=== PATIENT | male | born 1945 | race Caucasian/White ===

== ENCOUNTER → 2019-03-04 | Day surgery (SDC) | payer MEDICARE, OTHER ==
[2019-03-02 16:14] LABS: BASOPHILS # (AUTO) 0.1 (0.0-0.1); BASOPHILS % 1.1 % (0.0-1.0); EOSINOPHILS # (AUTO) 0.1 (0.0-0.4); EOSINOPHILS % 2.5 % (0.0-6.0); HEMOGLOBIN 12.5 g/dL (14.0-18.0); LYMPHOCYTES # (AUTO) 1.4 (1.0-3.2); LYMPHOCYTES % 24.6 % (18.0-39.1); MEAN CORPUSCULAR HEMOGLOBIN 30.9 pg (28-32); MEAN CORPUSCULAR HGB CONC 33.8 g/dL (31-35); MEAN CORPUSCULAR VOLUME 91.6 fL (81-99); MONOCYTES # (AUTO) 0.8 (0.2-0.8); MONOCYTES % 13.8 % (4.4-11.3); NEUTROPHILS # (AUTO) 3.3 (2.1-6.9); NEUTROPHILS % 57.6 % (38.7-80.0); PLATELET COUNT 271 x10e3/uL (140-360); RED BLOOD COUNT 4.04 x10e6/uL (4.3-5.7); RED CELL DISTRIBUTION WIDTH 12.6 % (11.7-14.4)
[~2019-03-04] MED LIST: AMIODARONE HCL200 MG PO; ATORVASTATIN CA10 MG PO; DEXAMETHASONE SOD PHOS 10 MG/1 ML VIAL ONE; FERROUS FUMARA324 MG PO; FOLIC ACID1 MG PO; IOPAMIDOL 200 MG/ML 20 ML VIAL IT ONE; LIDOCAINE HCL 1% 30ML-PF VIAL ONE; LISINOPRIL2.5 MG PO; METFORMIN HCL500 MG PO; MIDAZOLAM HCL 2 MG/2 ML VIAL ONE; NEXIUM40 MG PO; PROPOFOL IV EMULSION 10 MG/ML 20 ML VIAL ONE; XARELTO20 MG PO
[2019-03-04 08:05] VITALS: BP 134/86
== END | disposition home or self-care (01) ==
LOC: OR 05:44
PROVIDERS: ATTEND Physical Medicine & Rehabilitation Pain Medicine
DX: M54.16 Radiculopathy, lumbar region (principal); R93.7 Abnormal findings on diagnostic imaging of other parts of musculoskeletal system; E11.9 Type 2 diabetes mellitus without complications; E03.9 Hypothyroidism, unspecified; I48.91 Unspecified atrial fibrillation; I10 Essential (primary) hypertension; K21.9 Gastro-esophageal reflux disease without esophagitis; K44.9 Diaphragmatic hernia without obstruction or gangrene; Z01.812 Encounter for preprocedural laboratory examination; Z79.02 Long term (current) use of antithrombotics/antiplatelets; Z79.84 Long term (current) use of oral hypoglycemic drugs; Z79.82 Long term (current) use of aspirin
CPT/HCPCS: 36415 ×2; 64483; 64484 ×2; 82948; 85025; J1100; J2001; J2250; J2704; Q9967; 77003

== ENCOUNTER → 2019-04-15 | Day surgery (SDC) | payer MEDICARE ==
[2019-04-13 17:19] LABS: BASOPHILS # (AUTO) 0.1 (0.0-0.1); BASOPHILS % 0.9 % (0.0-1.0); EOSINOPHILS # (AUTO) 0.1 (0.0-0.4); EOSINOPHILS % 2.6 % (0.0-6.0); HEMATOCRIT 36.1 % (38.2-49.6); HEMOGLOBIN 12.3 g/dL (14.0-18.0); LYMPHOCYTES # (AUTO) 1.5 (1.0-3.2); LYMPHOCYTES % 27.8 % (18.0-39.1); MEAN CORPUSCULAR HEMOGLOBIN 31.5 pg (28-32); MEAN CORPUSCULAR HGB CONC 34.1 g/dL (31-35); MEAN CORPUSCULAR VOLUME 92.3 fL (81-99); MONOCYTES # (AUTO) 0.8 (0.2-0.8); MONOCYTES % 13.8 % (4.4-11.3); NEUTROPHILS % 54.5 % (38.7-80.0); PLATELET COUNT 236 x10e3/uL (140-360); RED BLOOD COUNT 3.91 x10e6/uL (4.3-5.7); RED CELL DISTRIBUTION WIDTH 12.1 % (11.7-14.4)
[~2019-04-15] MED LIST changes: +FENTANYL CITRATE/PF 100MCG/2 ML INJ ONE
[2019-04-15 07:28] VITALS: BP 128/62
== END | disposition home or self-care (01) ==
LOC: OR 05:13
PROVIDERS: ATTEND Physical Medicine & Rehabilitation Pain Medicine
DX: M47.26 Other spondylosis with radiculopathy, lumbar region (principal); E03.9 Hypothyroidism, unspecified; I10 Essential (primary) hypertension; I48.91 Unspecified atrial fibrillation; E11.9 Type 2 diabetes mellitus without complications; Z01.812 Encounter for preprocedural laboratory examination; Z79.02 Long term (current) use of antithrombotics/antiplatelets; Z79.84 Long term (current) use of oral hypoglycemic drugs; Z79.82 Long term (current) use of aspirin
CPT/HCPCS: 36415 ×2; 64483; 64484; 82948; 85025; J1100; J2001; J2250; J2704; Q9967; 77003; J3010

== ENCOUNTER → 2020-05-31 | Outpatient (CLI) | payer MEDICARE ==
[~2020-05-31] MED LIST changes: -DEXAMETHASONE SOD PHOS 10 MG/1 ML VIAL ONE; -FENTANYL CITRATE/PF 100MCG/2 ML INJ ONE; -IOPAMIDOL 200 MG/ML 20 ML VIAL IT ONE; -LIDOCAINE HCL 1% 30ML-PF VIAL ONE; -MIDAZOLAM HCL 2 MG/2 ML VIAL ONE; -PROPOFOL IV EMULSION 10 MG/ML 20 ML VIAL ONE
[2020-05-31 09:01] LABS: CREATININE, SERUM 1.41 mg/dL (0.72-1.25)
== END ==
LOC: CT 07:32
PROVIDERS: ATTEND Family Medicine
DX: K76.89 Other specified diseases of liver (principal)
CPT/HCPCS: 36415; 82565; 84520

== ENCOUNTER → 2020-07-11 | Outpatient (CLI) | payer MEDICARE ==
[~2020-07-11] MED LIST changes: +IOPAMIDOL 370 MG/ML 200 ML INFUS..BTL INJ ONE; +SODIUM CHLORIDE 0.9% 500ML 500 ML ONE; +SODIUM CHLORIDE 0.9% 50ML 50 ML ONE
[2020-07-11 11:56] LABS: CREATININE, SERUM 1.52 mg/dL (0.72-1.25)
--- NOTE | 2020-07-11 15:25 | Diagnostic Imaging Report ---
EXAM: CT Abdomen WITH intravenous contrast - liver mass protocol INDICATION: Left liver lesion COMPARISON: None. TECHNIQUE: The abdomen was scanned utilizing a multidetector helical scanner from the lung base to the iliac crest before and after administration of IV contrast. Coronal and sagittal reformations were obtained. Liver mass protocol was performed. Scans were performed prior to contrast and during arterial, portal venous, and venous delay phase. IV CONTRAST: 100mL of Isovue 370 ORAL CONTRAST: Water RADIATION DOSE: Total DLP: 1183 mGy*cm Dose modulation, iterative reconstruction, and/or weight based adjustment of the mA/kV was utilized to reduce the radiation dose to as low as reasonably achievable. FINDINGS: LOWER THORAX: Prominent peripheral lung base interstitial opacities compatible with component of nonspecific interstitial fibrosis. No focal consolidation. Large hiatal hernia. HEPATOBILIARY: 1.3 cm left liver lesion appears hypodense on noncontrast and early arterial phase images, shows peripheral nodular enhancement on portal venous phase images and is imperceptible with equal enhancement compared to surrounding liver parenchyma on 5 minute delayed phase images. Diffuse hepatic steatosis. No additional focal liver lesions. Unremarkable gallbladder. No biliary ductal dilation. SPLEEN: No splenomegaly. PANCREAS: No focal masses or ductal dilatation. ADRENALS: No adrenal nodules. KIDNEYS/URETERS: No hydronephrosis, renal calculi, or solid renal mass lesion. Bilateral renal cysts, the largest of which measures up to 2.3 cm on the right. PERITONEUM / RETROPERITONEUM: No free air or fluid. LYMPH NODES: No lymphadenopathy. VESSELS: Scattered atherosclerotic calcifications of the nonaneurysmal abdominal aorta and major branches. GI TRACT: No distention or wall thickening. BONES AND SOFT TISSUES: Unremarkable. IMPRESSION: 1.3 cm left liver lesion with characteristics most compatible with a benign hemangioma. Diffuse hepatic steatosis. Large hiatal hernia. Signed by: Dick Howell MD on 07/11/2020 3:21 PM
== END ==
LOC: CT 10:59
PROVIDERS: ATTEND Family Medicine
DX: K76.89 Other specified diseases of liver (principal)
CPT/HCPCS: 36415; 74170; 82565; 84520; 96360; J7040; Q9967

== ENCOUNTER → 2021-03-12 | Outpatient (CLI) | payer MEDICARE ==
[~2021-03-12] MED LIST changes: -IOPAMIDOL 370 MG/ML 200 ML INFUS..BTL INJ ONE; +LEVOXYL50 MCG PO; -SODIUM CHLORIDE 0.9% 500ML 500 ML ONE; -SODIUM CHLORIDE 0.9% 50ML 50 ML ONE
[2021-03-12 13:08] LABS: BASOPHILS # (AUTO) 0.1 (0.0-0.1); BASOPHILS % 1.3 % (0.0-1.0); EOSINOPHILS # (AUTO) 0.2 (0.0-0.4); EOSINOPHILS % 3.5 % (0.0-6.0); HEMATOCRIT 23.3 % (38.2-49.6); LYMPHOCYTES # (AUTO) 1.6 (1.0-3.2); LYMPHOCYTES % 23.9 % (18.0-39.1); MEAN CORPUSCULAR HEMOGLOBIN 24.5 pg (28-32); MEAN CORPUSCULAR HGB CONC 29.6 g/dL (31-35); MEAN CORPUSCULAR VOLUME 82.6 fL (81-99); MONOCYTES % 15.2 % (4.4-11.3); NEUTROPHILS # (AUTO) 3.8 (2.1-6.9); NEUTROPHILS % 55.8 % (38.7-80.0); PLATELET COUNT 375 x10e3/uL (140-360); RED BLOOD COUNT 2.82 x10e6/uL (4.3-5.7); RED CELL DISTRIBUTION WIDTH 15.2 % (11.7-14.4)
[2021-03-12 13:28] LABS: HEMOGLOBIN 6.9 g/dL (14.0-18.0)
[2021-03-12 13:39] LABS: ANION GAP 13.6 mmol/L (8-16); CALCIUM 9.1 mg/dL (8.4-10.2); CREATININE, SERUM 1.73 mg/dL (0.72-1.25); POTASSIUM 4.6 mmol/L (3.5-5.1)
== END | disposition home or self-care (01) ==
LOC: RAD 14:09 → EDSTATUS 03-29 07:30
PROVIDERS: ATTEND Physical Medicine & Rehabilitation Pain Medicine
DX: Z01.810 Encounter for preprocedural cardiovascular examination (principal); Z01.812 Encounter for preprocedural laboratory examination; M47.896 Other spondylosis, lumbar region; Z20.822 Contact with and (suspected) exposure to COVID-19
CPT/HCPCS: 36415; 80048; 85025; 93005; U0002

== ENCOUNTER → 2021-05-28 | Outpatient (CLI) | payer MEDICARE | LOC: RAD 13:57 | PROVIDERS: ATTEND Family Medicine | DX: I48.91 Unspecified atrial fibrillation (principal); M79.605 Pain in left leg; M79.604 Pain in right leg; R60.0 Localized edema | CPT/HCPCS: 93970 ==

== ENCOUNTER → 2021-08-27 | Day surgery (SDC) | payer MEDICARE ==
[2021-08-24 15:21] LABS: BASOPHILS # (AUTO) 0.1 (0.0-0.1); BASOPHILS % 1.1 % (0.0-1.0); EOSINOPHILS # (AUTO) 0.2 (0.0-0.4); EOSINOPHILS % 2.6 % (0.0-6.0); HEMATOCRIT 29.8 % (38.2-49.6); HEMOGLOBIN 9.6 g/dL (14.0-18.0); LYMPHOCYTES # (AUTO) 1.6 (1.0-3.2); LYMPHOCYTES % 23.6 % (18.0-39.1); MEAN CORPUSCULAR HGB CONC 32.2 g/dL (31-35); MONOCYTES # (AUTO) 0.7 (0.2-0.8); MONOCYTES % 10.7 % (4.4-11.3); NEUTROPHILS # (AUTO) 4.1 (2.1-6.9); NEUTROPHILS % 61.4 % (38.7-80.0); PLATELET COUNT 316 x10e3/uL (140-360); RED BLOOD COUNT 3.31 x10e6/uL (4.3-5.7); RED CELL DISTRIBUTION WIDTH 16.4 % (11.7-14.4)
[2021-08-24 15:34] LABS: ANION GAP 15.2 mmol/L (8-16); CALCIUM 9.1 mg/dL (8.4-10.2); CREATININE, SERUM 3.49 mg/dL (0.72-1.25); POTASSIUM 4.2 mmol/L (3.5-5.1)
[~2021-08-27] MED LIST changes: +CLARITIN10 MG PO; +GLUCAGON FOR INJ 1 MG VIAL ONE; +HYOSCYAMINE SULFATE 0.5 MG/ML INJ ONE; +LASIX20 MG PO; +POVIDONE IODINE 0.05% 0.05 % ML PO ONE; +PRAMIPEXOLE0.125 MG PO; +PROPOFOL IV EMULSION 10 MG/ML 20 ML VIAL ONE; +PROPOFOL IV EMULSION 10 MG/ML 50 ML VIAL IV ONE; +VITAMIN B122500 MCG; +VITAMIN B6100 MG/2.5
[2021-08-27 10:41] LABS: WBC,FECAL (FECAL LACTOFERRIN) POSITIVE (NEGATIVE)
[2021-08-27 11:30] VITALS: BP 149/65
[2021-08-27 15:12] LABS: C DIFFICILE TOXIN A&B AMP PROB NEGATIVE (NEGATIVE)
== END | disposition home or self-care (01) ==
LOC: OR 07:43
PROVIDERS: ATTEND Internal Medicine Gastroenterology
DX: D64.89 Other specified anemias (principal); C18.0 Malignant neoplasm of cecum; D12.5 Benign neoplasm of sigmoid colon; K31.7 Polyp of stomach and duodenum; K29.50 Unspecified chronic gastritis without bleeding; B96.81 Helicobacter pylori [H. pylori] as the cause of diseases classified elsewhere; K22.70 Barrett's esophagus without dysplasia; R19.7 Diarrhea, unspecified; K21.9 Gastro-esophageal reflux disease without esophagitis; K44.9 Diaphragmatic hernia without obstruction or gangrene; K57.30 Diverticulosis of large intestine without perforation or abscess without bleeding; K64.8 Other hemorrhoids; E11.22 Type 2 diabetes mellitus with diabetic chronic kidney disease; I12.9 Hypertensive chronic kidney disease with stage 1 through stage 4 chronic kidney disease, or unspecified chronic kidney disease; N18.9 Chronic kidney disease, unspecified; I48.91 Unspecified atrial fibrillation; Z01.810 Encounter for preprocedural cardiovascular examination; Z01.812 Encounter for preprocedural laboratory examination; Z20.822 Contact with and (suspected) exposure to COVID-19; Z79.02 Long term (current) use of antithrombotics/antiplatelets; Z79.84 Long term (current) use of oral hypoglycemic drugs; Z85.828 Personal history of other malignant neoplasm of skin
CPT/HCPCS: 36415 ×2; 43239; 45380; 45385; 80048; 82948; 83630; 83993; 85025; 87045; 87177; 87328; 87493; 93005; U0002; 45378; J1610; J1980

== ENCOUNTER → 2021-09-03 | Outpatient (CLI) | payer MEDICARE ==
[~2021-09-03] MED LIST changes: +DIATRIZOATE MEGL/DIATRIZOA SOD 30 ML BTL PO ONE; -GLUCAGON FOR INJ 1 MG VIAL ONE; -HYOSCYAMINE SULFATE 0.5 MG/ML INJ ONE; -POVIDONE IODINE 0.05% 0.05 % ML PO ONE; -PROPOFOL IV EMULSION 10 MG/ML 20 ML VIAL ONE; -PROPOFOL IV EMULSION 10 MG/ML 50 ML VIAL IV ONE
== END ==
LOC: CT 08:03
PROVIDERS: ATTEND Internal Medicine Gastroenterology
DX: D49.0 Neoplasm of unspecified behavior of digestive system (principal); R19.09 Other intra-abdominal and pelvic swelling, mass and lump
CPT/HCPCS: 74176

== ENCOUNTER → 2021-09-24 | Outpatient (CLI) | payer MEDICARE ==
[~2021-09-24] MED LIST changes: -DIATRIZOATE MEGL/DIATRIZOA SOD 30 ML BTL PO ONE
[2021-09-24 09:05] LABS: CREATININE, SERUM 2.47 mg/dL (0.72-1.25)
== END ==
LOC: CT 07:33
PROVIDERS: ATTEND Internal Medicine Gastroenterology
DX: K63.89 Other specified diseases of intestine (principal); R91.1 Solitary pulmonary nodule
CPT/HCPCS: 36415; 71250; 82565; 84520

== ENCOUNTER 2021-10-18 07:45 | Inpatient (IN) | payer MEDICARE ==
[2021-10-15 14:07] LABS: BASOPHILS # (AUTO) 0.1 (0.0-0.1); BASOPHILS % 1.3 % (0.0-1.0); EOSINOPHILS # (AUTO) 0.3 (0.0-0.4); EOSINOPHILS % 4.2 % (0.0-6.0); HEMATOCRIT 32.6 % (38.2-49.6); HEMOGLOBIN 10.1 g/dL (14.0-18.0); LYMPHOCYTES # (AUTO) 1.6 (1.0-3.2); LYMPHOCYTES % 25.4 % (18.0-39.1); MEAN CORPUSCULAR HEMOGLOBIN 29.5 pg (28-32); MEAN CORPUSCULAR VOLUME 95.3 fL (81-99); MONOCYTES # (AUTO) 0.8 (0.2-0.8); MONOCYTES % 12.1 % (4.4-11.3); NEUTROPHILS # (AUTO) 3.5 (2.1-6.9); NEUTROPHILS % 56.5 % (38.7-80.0); PLATELET COUNT 321 x10e3/uL (140-360); RED BLOOD COUNT 3.42 x10e6/uL (4.3-5.7); RED CELL DISTRIBUTION WIDTH 13.3 % (11.7-14.4)
[2021-10-15 14:38] LABS: ALBUMIN 3.7 g/dL (3.5-5.0); ALBUMIN/GLOBULIN RATIO 1.2 (0.8-2.0); CALCIUM 9.2 mg/dL (8.4-10.2); CREATININE, SERUM 2.72 mg/dL (0.72-1.25)
[~2021-10-18] VITALS: Ht 177.8 cm; Wt 74.4 kg
[~2021-10-18 07:45] MED LIST changes: +MOBIC7.5 MG PO
[2021-10-18] MEDS ORDERED: GLYCOPYRROLATE INJ 0.2 MG/ML VIAL ONE (08:54)
[2021-10-18] MEDS ORDERED: EPHEDRINE SULFATE INJ 50 MG/ML VIAL ONE (08:54)
[2021-10-18] MEDS ORDERED: LIDOCAINE HCL 2% LOCAL INJ 5 ML SDV VIAL INJ ONE (08:54)
[2021-10-18] MEDS ORDERED: NEOSTIGMINE 1 MG/ML 10ML VIAL ONE (08:54)
[2021-10-18] MEDS ORDERED: SEVOFLURANE INHAL SOLN 250 ML PEN BTL ONE (08:54)
[2021-10-18] MEDS ORDERED: DEXAMETHASONE SOD PHOS INJ 4 MG/ML SDV ONE (08:54)
[2021-10-18] MEDS ORDERED: POVIDONE IODINE 0.05% 0.05 % ML PO ONE (08:54)
[2021-10-18] MEDS ORDERED: PROPOFOL IV EMULSION 10 MG/ML 20 ML VIAL ONE (08:54)
[2021-10-18] MEDS ORDERED: ONDANSETRON HCL INJ 2MG/ML 2ML 2 MG/ML VIAL ONE (08:54)
[2021-10-18] MEDS: SODIUM CHLORIDE 0.9% 250ML IRRIG IR SCH ×6 (10:45→23:36)
[2021-10-18] MEDS ORDERED: ACETAMINOPHEN 1000 MG/100 ML IV PRN (10:45)
[2021-10-18 15:30] VITALS: BP 152/59
[2021-10-18] MEDS: INSULIN REGULAR, HUMAN 100 UNIT/1 ML SQ SCH (16:24)
[2021-10-18] MEDS: Cefoxitin 1 GM in SODIUM CHLORIDE 0.9% 50ML 50 ML IV SCH ×2 (17:06→23:36)
[2021-10-18] MEDS: SODIUM CHLORIDE 0.9% 1000ML 1,000 ML IV SCH (17:06)
[2021-10-18] MEDS ORDERED: KETAMINE HCL INJ 50 MG/ML 10 ML VIAL ONE (18:05)
[2021-10-18] MEDS ORDERED: FENTANYL CITRATE/PF 100MCG/2 ML INJ ONE (18:05)
[2021-10-18] MEDS ORDERED: Morphine 10mg syringe 10 MG/ML INJ ONE (18:05)
[2021-10-18 20:00] VITALS: BP 156/59
[2021-10-18] MEDS: AMIODARONE HCL 200 MG TAB PO SCH (21:45)
[2021-10-19] VITALS (8 sets, daily range): BP systolic 133–160; BP diastolic 53–67
[2021-10-19] MEDS: SODIUM CHLORIDE 0.9% 250ML IRRIG IR SCH ×6 (03:14→21:40)
[2021-10-19] MEDS: SODIUM CHLORIDE 0.9% 1000ML 1,000 ML IV SCH ×2 (05:29→12:05)
[2021-10-19] MEDS: INSULIN REGULAR, HUMAN 100 UNIT/1 ML SQ SCH ×4 (06:00→17:09)
[2021-10-19 09:11] LABS: HEMATOCRIT 30.2 % (38.2-49.6); HEMOGLOBIN 9.4 g/dL (14.0-18.0); LYMPHOCYTES # (AUTO) 0.7 (1.0-3.2); LYMPHOCYTES % 7.6 % (18.0-39.1); MEAN CORPUSCULAR HEMOGLOBIN 29.2 pg (28-32); MEAN CORPUSCULAR HGB CONC 31.1 g/dL (31-35); MEAN CORPUSCULAR VOLUME 93.8 fL (81-99); MONOCYTES # (AUTO) 0.9 (0.2-0.8); MONOCYTES % 8.9 % (4.4-11.3); NEUTROPHILS % 83.2 % (38.7-80.0); PLATELET COUNT 256 x10e3/uL (140-360); RED BLOOD COUNT 3.22 x10e6/uL (4.3-5.7)
[2021-10-19 09:28] LABS: ANION GAP 14.4 mmol/L (8-16); CALCIUM 8.5 mg/dL (8.4-10.2); CREATININE, SERUM 2.53 mg/dL (0.72-1.25); POTASSIUM 5.4 mmol/L (3.5-5.1)
[2021-10-19] MEDS: HYDROMORPHONE 1MG/1ML INJ IV PRN ×2 (11:21→21:15)
[2021-10-19] MEDS: AMIODARONE HCL 200 MG TAB PO SCH (20:49)
[2021-10-19] MEDS: ONDANSETRON HCL INJ 2MG/ML 2ML 2 MG/ML VIAL IV PRN (21:15)
[2021-10-20] MEDS: SODIUM CHLORIDE 0.9% 1000ML 1,000 ML IV SCH ×2 (01:50→11:29)
[2021-10-20] MEDS: SODIUM CHLORIDE 0.9% 250ML IRRIG IR SCH ×6 (01:53→21:59)
[2021-10-20 05:36] VITALS: BP 154/71
[2021-10-20] MEDS: INSULIN REGULAR, HUMAN 100 UNIT/1 ML SQ SCH ×4 (06:00→16:27)
[2021-10-20 06:12] LABS: BASOPHILS % 0.4 % (0.0-1.0); EOSINOPHILS # (AUTO) 0.1 (0.0-0.4); EOSINOPHILS % 0.9 % (0.0-6.0); HEMATOCRIT 28.5 % (38.2-49.6); HEMOGLOBIN 9.1 g/dL (14.0-18.0); LYMPHOCYTES # (AUTO) 1.1 (1.0-3.2); LYMPHOCYTES % 14.8 % (18.0-39.1); MEAN CORPUSCULAR HEMOGLOBIN 29.8 pg (28-32); MEAN CORPUSCULAR HGB CONC 31.9 g/dL (31-35); MEAN CORPUSCULAR VOLUME 93.4 fL (81-99); MONOCYTES # (AUTO) 0.8 (0.2-0.8); MONOCYTES % 10.3 % (4.4-11.3); NEUTROPHILS # (AUTO) 5.5 (2.1-6.9); NEUTROPHILS % 73.2 % (38.7-80.0); PLATELET COUNT 237 x10e3/uL (140-360); RED BLOOD COUNT 3.05 x10e6/uL (4.3-5.7); RED CELL DISTRIBUTION WIDTH 13.2 % (11.7-14.4)
[2021-10-20 06:32] LABS: ANION GAP 11.9 mmol/L (8-16); CALCIUM 8.4 mg/dL (8.4-10.2); CREATININE, SERUM 1.91 mg/dL (0.72-1.25); POTASSIUM 4.9 mmol/L (3.5-5.1)
[2021-10-20 07:51] VITALS: BP 135/59
[2021-10-20 08:58] VITALS: BP 135/59
[2021-10-20] MEDS: HYDROMORPHONE 1MG/1ML INJ IV PRN (11:29)
[2021-10-20] MEDS: ONDANSETRON HCL INJ 2MG/ML 2ML 2 MG/ML VIAL IV PRN (11:29)
[2021-10-20 11:51] VITALS: BP 180/65
[2021-10-20] MEDS: PRAMIPEXOLE DIHYDROCHLORIDE 0.25 MG TAB PO SCH ×2 (13:59→20:20)
[2021-10-20] MEDS ORDERED: METOPROLOL TARTRATE INJ 1 MG/ML VIAL IV ONE (15:30)
[2021-10-20 16:00] VITALS: BP 155/81
[2021-10-20] MEDS ORDERED: DEXTROSE 5%/0.9% SOD CHL 1,000 ML IV SCH (18:00)
[2021-10-20] MEDS ORDERED: DEXTROSE 50% SYRINGE 50 ML IV PRN (18:00)
[2021-10-20] MEDS: METOPROLOL TARTRATE INJ 1 MG/ML VIAL IV PRN (18:24)
[2021-10-20] MEDS: AMIODARONE HCL 200 MG TAB PO SCH (20:20)
[2021-10-20 20:43] VITALS: BP 129/98
[2021-10-21] VITALS (7 sets, daily range): BP systolic 136–175; BP diastolic 61–99
[2021-10-21] MEDS: METOPROLOL TARTRATE INJ 1 MG/ML VIAL IV PRN (02:24)
[2021-10-21] MEDS: SODIUM CHLORIDE 0.9% 250ML IRRIG IR SCH ×3 (02:45→10:45)
[2021-10-21] MEDS: INSULIN REGULAR, HUMAN 100 UNIT/1 ML SQ SCH ×4 (06:00→16:36)
[2021-10-21 06:24] LABS: BASOPHILS % 0.6 % (0.0-1.0); EOSINOPHILS # (AUTO) 0.2 (0.0-0.4); EOSINOPHILS % 2.5 % (0.0-6.0); HEMATOCRIT 32.1 % (38.2-49.6); HEMOGLOBIN 9.9 g/dL (14.0-18.0); LYMPHOCYTES % 14.2 % (18.0-39.1); MEAN CORPUSCULAR HEMOGLOBIN 29.3 pg (28-32); MEAN CORPUSCULAR HGB CONC 30.8 g/dL (31-35); MONOCYTES # (AUTO) 0.8 (0.2-0.8); MONOCYTES % 11.7 % (4.4-11.3); NEUTROPHILS % 70.7 % (38.7-80.0); PLATELET COUNT 259 x10e3/uL (140-360); RED BLOOD COUNT 3.38 x10e6/uL (4.3-5.7); RED CELL DISTRIBUTION WIDTH 12.9 % (11.7-14.4)
[2021-10-21 06:46] LABS: ANION GAP 12.8 mmol/L (8-16); CALCIUM 9.1 mg/dL (8.4-10.2); CREATININE, SERUM 1.62 mg/dL (0.72-1.25); POTASSIUM 4.8 mmol/L (3.5-5.1)
[2021-10-21] MEDS: PRAMIPEXOLE DIHYDROCHLORIDE 0.25 MG TAB PO SCH ×3 (08:57→21:00)
[2021-10-21] MEDS: HYDROMORPHONE 1MG/1ML INJ IV PRN (10:55)
[2021-10-21] MEDS: ONDANSETRON HCL INJ 2MG/ML 2ML 2 MG/ML VIAL IV PRN (10:55)
[2021-10-21] MEDS: DEXTROSE 5%/0.45% SOD CHL 1,000 ML IV SCH ×2 (13:58→23:30)
[2021-10-21] MEDS: METOPROLOL TARTRATE 25 MG TAB PO SCH (16:35)
[2021-10-21] MEDS: AMIODARONE HCL 200 MG TAB PO SCH (21:00)
[2021-10-22] VITALS (7 sets, daily range): BP systolic 141–163; BP diastolic 59–74
[2021-10-22] MEDS: INSULIN REGULAR, HUMAN 100 UNIT/1 ML SQ SCH ×4 (06:00→15:56)
[2021-10-22] MEDS: PRAMIPEXOLE DIHYDROCHLORIDE 0.25 MG TAB PO SCH ×3 (09:03→20:20)
[2021-10-22] MEDS: DEXTROSE 5%/0.45% SOD CHL 1,000 ML IV SCH ×2 (09:04→18:01)
[2021-10-22] MEDS: METOPROLOL TARTRATE 25 MG TAB PO SCH ×2 (09:04→15:57)
[2021-10-22] MEDS: AMIODARONE HCL 200 MG TAB PO SCH (20:20)
[2021-10-23] VITALS (8 sets, daily range): BP systolic 133–165; BP diastolic 57–81
[2021-10-23] MEDS: LISINOPRIL 2.5 MG TAB PO SCH ×2 (00:07→22:04)
[2021-10-23] MEDS: HYDROMORPHONE 1MG/1ML INJ IV PRN (01:15)
[2021-10-23] MEDS: INSULIN REGULAR, HUMAN 100 UNIT/1 ML SQ SCH ×4 (06:00→16:28)
[2021-10-23] MEDS: DEXTROSE 5%/0.45% SOD CHL 1,000 ML IV SCH ×2 (06:13→16:22)
[2021-10-23] MEDS: PRAMIPEXOLE DIHYDROCHLORIDE 0.25 MG TAB PO SCH ×3 (09:48→22:04)
[2021-10-23] MEDS: METOPROLOL TARTRATE 25 MG TAB PO SCH ×2 (09:48→16:27)
[2021-10-23] MEDS: AMIODARONE HCL 200 MG TAB PO SCH (22:03)
[2021-10-24] VITALS: BP 169/69
[2021-10-24 04:00] VITALS: BP 168/62
[2021-10-24] MEDS: INSULIN REGULAR, HUMAN 100 UNIT/1 ML SQ SCH ×3 (06:00→11:54)
[2021-10-24 07:45] VITALS: BP 154/61
[2021-10-24] MEDS: DEXTROSE 5%/0.45% SOD CHL 1,000 ML IV SCH (08:34)
[2021-10-24] MEDS: PRAMIPEXOLE DIHYDROCHLORIDE 0.25 MG TAB PO SCH ×2 (09:00→15:00)
[2021-10-24] MEDS: METOPROLOL TARTRATE 25 MG TAB PO SCH ×2 (09:00→16:21)
[2021-10-24 09:28] VITALS: BP 154/61
[2021-10-24 11:57] VITALS: BP 160/63
[2021-10-24 15:59] VITALS: BP 123/49
[2021-10-24] MEDS ORDERED: ENOXAPARIN SOD INJ 40 MG/0.4 ML SYR SC SCH (17:00)
== END 2021-10-24 16:45 | disposition home or self-care (01) | DRG 330 ==
LOC: OR 07:45 → PACU V 10:38 → MED/SURG 15:30
PROVIDERS: ADMIT Surgery; ATTEND Surgery
PROC: 0DTF0ZZ Resection of Right Large Intestine, Open Approach (ICD-10-PCS; principal; 2021-10-18 09:00)
DX: C18.2 Malignant neoplasm of ascending colon (principal); C78.7 Secondary malignant neoplasm of liver and intrahepatic bile duct; C78.00 Secondary malignant neoplasm of unspecified lung; N17.9 Acute kidney failure, unspecified; I48.0 Paroxysmal atrial fibrillation; I10 Essential (primary) hypertension; E78.5 Hyperlipidemia, unspecified; K21.9 Gastro-esophageal reflux disease without esophagitis; E03.9 Hypothyroidism, unspecified; E11.9 Type 2 diabetes mellitus without complications; Z20.822 Contact with and (suspected) exposure to COVID-19; Z79.84 Long term (current) use of oral hypoglycemic drugs
CPT/HCPCS: 36415; 71046; 80048; 80053; 82948; 85025; 88305; 88309; 88342; 94799; J0694; J1100; J1170; J2001; J2270; J2405; J2710; J3010; J7030; J7042; U0002

== ENCOUNTER → 2021-11-21 | Day surgery (SDC) | payer MEDICARE ==
[2021-11-20 10:06] LABS: BASOPHILS # (AUTO) 0.1 (0.0-0.1); BASOPHILS % 1.3 % (0.0-1.0); EOSINOPHILS # (AUTO) 0.3 (0.0-0.4); EOSINOPHILS % 3.8 % (0.0-6.0); HEMATOCRIT 36.9 % (38.2-49.6); HEMOGLOBIN 11.4 g/dL (14.0-18.0); LYMPHOCYTES # (AUTO) 1.6 (1.0-3.2); LYMPHOCYTES % 21.9 % (18.0-39.1); MEAN CORPUSCULAR HEMOGLOBIN 28.9 pg (28-32); MEAN CORPUSCULAR HGB CONC 30.9 g/dL (31-35); MEAN CORPUSCULAR VOLUME 93.4 fL (81-99); MONOCYTES # (AUTO) 1.1 (0.2-0.8); MONOCYTES % 14.7 % (4.4-11.3); NEUTROPHILS # (AUTO) 4.1 (2.1-6.9); NEUTROPHILS % 57.5 % (38.7-80.0); PLATELET COUNT 280 x10e3/uL (140-360); RED BLOOD COUNT 3.95 x10e6/uL (4.3-5.7); RED CELL DISTRIBUTION WIDTH 13.2 % (11.7-14.4)
[2021-11-20 10:30] LABS: ALBUMIN 3.8 g/dL (3.5-5.0); ALBUMIN/GLOBULIN RATIO 1.2 (0.8-2.0); ANION GAP 17.4 mmol/L (8-16); CALCIUM 9.7 mg/dL (8.4-10.2); CREATININE, SERUM 2.85 mg/dL (0.72-1.25); POTASSIUM 4.4 mmol/L (3.5-5.1)
[~2021-11-21] MED LIST changes: +BUPIVACAINE 0.25% 30ML SDV ONE; +DEXAMETHASONE SOD PHOS INJ 4 MG/ML SDV ONE; +EPHEDRINE SULFATE INJ 50 MG/ML VIAL ONE; +EPINEPHRINE HCL 1:1000 1ML 1 MG/ML AMP ONE; +FENTANYL CITRATE/PF 100MCG/2 ML INJ ONE; +HEPARIN SOD (PORCINE) 5,000 UNIT/ML VIAL ONE; +LIDOCAINE HCL 1% LOCAL INJ 20 ML VIAL ONE; +LIDOCAINE HCL 2% LOCAL INJ 5 ML SDV VIAL INJ ONE; +ONDANSETRON HCL INJ 2MG/ML 2ML 2 MG/ML VIAL ONE; +POVIDONE IODINE 0.05% 0.05 % ML PO ONE; +PROPOFOL IV EMULSION 10 MG/ML 20 ML VIAL ONE; +SEVOFLURANE INHAL SOLN 250 ML PEN BTL ONE; +SODIUM CHLORIDE 0.9% 500ML 500 ML ONE
[2021-11-21 11:18] VITALS: BP 5/10
== END | disposition home or self-care (01) ==
LOC: OR 06:36
PROVIDERS: ATTEND Surgery
DX: C18.9 Malignant neoplasm of colon, unspecified (principal); E11.9 Type 2 diabetes mellitus without complications; E03.9 Hypothyroidism, unspecified; K21.9 Gastro-esophageal reflux disease without esophagitis; I10 Essential (primary) hypertension; I44.0 Atrioventricular block, first degree; I45.10 Unspecified right bundle-branch block; E78.5 Hyperlipidemia, unspecified; I49.9 Cardiac arrhythmia, unspecified; Z01.812 Encounter for preprocedural laboratory examination; Z20.822 Contact with and (suspected) exposure to COVID-19; Z79.84 Long term (current) use of oral hypoglycemic drugs; Z79.899 Other long term (current) drug therapy; Z90.49 Acquired absence of other specified parts of digestive tract
CPT/HCPCS: 36415 ×2; 36561; 76000; 80053; 82948; 85025; C1751; J1644; J7040; U0002; J0171; J1100; J2001; J2405; J3010

== ENCOUNTER → 2021-11-30 | Outpatient (CLI) | payer MEDICARE ==
[~2021-11-30] MED LIST changes: -BUPIVACAINE 0.25% 30ML SDV ONE; -DEXAMETHASONE SOD PHOS INJ 4 MG/ML SDV ONE; -EPHEDRINE SULFATE INJ 50 MG/ML VIAL ONE; -EPINEPHRINE HCL 1:1000 1ML 1 MG/ML AMP ONE; -FENTANYL CITRATE/PF 100MCG/2 ML INJ ONE; -HEPARIN SOD (PORCINE) 5,000 UNIT/ML VIAL ONE; -LIDOCAINE HCL 1% LOCAL INJ 20 ML VIAL ONE; -LIDOCAINE HCL 2% LOCAL INJ 5 ML SDV VIAL INJ ONE; -ONDANSETRON HCL INJ 2MG/ML 2ML 2 MG/ML VIAL ONE; -POVIDONE IODINE 0.05% 0.05 % ML PO ONE; -PROPOFOL IV EMULSION 10 MG/ML 20 ML VIAL ONE; -SEVOFLURANE INHAL SOLN 250 ML PEN BTL ONE; -SODIUM CHLORIDE 0.9% 500ML 500 ML ONE
== END ==
LOC: CT 15:20
PROVIDERS: ATTEND Internal Medicine Medical Oncology
DX: C18.9 Malignant neoplasm of colon, unspecified (principal)
CPT/HCPCS: 71250; 74176

== ENCOUNTER → 2022-01-03 | Day surgery (SDC) | payer MEDICARE ==
[2021-12-31 14:01] LABS: EOSINOPHILS # (AUTO) 0.1 (0.0-0.4); EOSINOPHILS % 1.2 % (0.0-6.0); HEMATOCRIT 28.9 % (38.2-49.6); HEMOGLOBIN 9.9 g/dL (14.0-18.0); LYMPHOCYTES # (AUTO) 1.2 (1.0-3.2); LYMPHOCYTES % 28.8 % (18.0-39.1); MEAN CORPUSCULAR HEMOGLOBIN 29.8 pg (28-32); MEAN CORPUSCULAR HGB CONC 34.3 g/dL (31-35); MONOCYTES # (AUTO) 0.2 (0.2-0.8); MONOCYTES % 4.2 % (4.4-11.3); NEUTROPHILS # (AUTO) 2.6 (2.1-6.9); NEUTROPHILS % 64.3 % (38.7-80.0); PLATELET COUNT 216 x10e3/uL (140-360); RED BLOOD COUNT 3.32 x10e6/uL (4.3-5.7); RED CELL DISTRIBUTION WIDTH 13.6 % (11.7-14.4)
[~2022-01-03] MED LIST changes: +EPHEDRINE SULFATE INJ 50 MG/ML VIAL ONE; +FENTANYL CITRATE/PF 100MCG/2 ML INJ ONE; +LIDOCAINE HCL 2% LOCAL INJ 5 ML SDV VIAL INJ ONE; +MIDAZOLAM HCL 2 MG/2 ML VIAL ONE; +PROPOFOL IV EMULSION 10 MG/ML 20 ML VIAL ONE; +PYRIDOXINE HCL PO; -VITAMIN B122500 MCG; +VITAMIN B122500 MCG PO
[2022-01-03 10:44] VITALS: BP 115/62
[2022-01-03 11:28] LABS: BASOPHILS # (AUTO) 0.1 (0.0-0.1); BASOPHILS % 1.6 % (0.0-1.0); EOSINOPHILS % 1.3 % (0.0-6.0); HEMATOCRIT 33.4 % (38.2-49.6); HEMOGLOBIN 11.3 g/dL (14.0-18.0); LYMPHOCYTES # (AUTO) 1.5 (1.0-3.2); LYMPHOCYTES % 46.1 % (18.0-39.1); MEAN CORPUSCULAR HEMOGLOBIN 29.7 pg (28-32); MEAN CORPUSCULAR HGB CONC 33.8 g/dL (31-35); MEAN CORPUSCULAR VOLUME 87.7 fL (81-99); MONOCYTES # (AUTO) 0.3 (0.2-0.8); MONOCYTES % 9.1 % (4.4-11.3); NEUTROPHILS # (AUTO) 1.3 (2.1-6.9); NEUTROPHILS % 41.6 % (38.7-80.0); PLATELET COUNT 162 x10e3/uL (140-360); RED BLOOD COUNT 3.81 x10e6/uL (4.3-5.7); RED CELL DISTRIBUTION WIDTH 13.7 % (11.7-14.4)
== END | disposition home or self-care (01) ==
LOC: OR 07:39
PROVIDERS: ATTEND Internal Medicine Gastroenterology
DX: K62.5 Hemorrhage of anus and rectum (principal); Z85.038 Personal history of other malignant neoplasm of large intestine; K29.70 Gastritis, unspecified, without bleeding; K21.00 Gastro-esophageal reflux disease with esophagitis, without bleeding; K22.70 Barrett's esophagus without dysplasia; K44.9 Diaphragmatic hernia without obstruction or gangrene; Z98.0 Intestinal bypass and anastomosis status; K57.30 Diverticulosis of large intestine without perforation or abscess without bleeding; K64.8 Other hemorrhoids; D64.9 Anemia, unspecified; I48.91 Unspecified atrial fibrillation; I10 Essential (primary) hypertension; E11.9 Type 2 diabetes mellitus without complications; Z01.812 Encounter for preprocedural laboratory examination; Z20.822 Contact with and (suspected) exposure to COVID-19; Z79.84 Long term (current) use of oral hypoglycemic drugs; Z79.899 Other long term (current) drug therapy
CPT/HCPCS: 36415 ×2; 43239; 45378; 82948; 85025 ×2; C9113; J2001; J2250; J2704; J3010; U0002

== ENCOUNTER → 2022-08-05 | Outpatient (CLI) | payer MEDICARE ==
[~2022-08-05] MED LIST changes: +AMIODARONE HCL100 MG PO; -EPHEDRINE SULFATE INJ 50 MG/ML VIAL ONE; +ESOMEPRAZOLE MA40 MG PO; -FENTANYL CITRATE/PF 100MCG/2 ML INJ ONE; -LIDOCAINE HCL 2% LOCAL INJ 5 ML SDV VIAL INJ ONE; +LISINOPRIL10 MG PO; +METFORMIN HCL500 M1 PO; -MIDAZOLAM HCL 2 MG/2 ML VIAL ONE; -PROPOFOL IV EMULSION 10 MG/ML 20 ML VIAL ONE; +SYNTHROID50 MCG PO
== END ==
LOC: CT 08:49
PROVIDERS: ATTEND Internal Medicine Medical Oncology
DX: C18.9 Malignant neoplasm of colon, unspecified (principal); C78.7 Secondary malignant neoplasm of liver and intrahepatic bile duct
CPT/HCPCS: 71250; 74176

== ENCOUNTER 2022-08-08 12:22 | Inpatient (IN) | payer MEDICARE ==
[~2022-08-08] VITALS: Ht 177.8 cm; Wt 56.7 kg
[~2022-08-08 12:22] MED LIST changes: -AMIODARONE HCL100 MG PO; -ESOMEPRAZOLE MA40 MG PO; -LISINOPRIL10 MG PO; -METFORMIN HCL500 M1 PO; -SYNTHROID50 MCG PO
[2022-08-08] MEDS ORDERED: SODIUM CHLORIDE 0.9% 1000ML 1,000 ML IV SCH ×2 (13:15→15:30)
[2022-08-08 14:23] LABS: BASOPHILS % 2.5 % (0.0-1.0); HEMATOCRIT 37.2 % (38.2-49.6); HEMOGLOBIN 12.5 g/dL (14.0-18.0); LYMPHOCYTES # (AUTO) 0.4 (1.0-3.2); LYMPHOCYTES % 87.5 % (18.0-39.1); MEAN CORPUSCULAR HEMOGLOBIN 31.6 pg (28-32); MEAN CORPUSCULAR HGB CONC 33.6 g/dL (31-35); MEAN CORPUSCULAR VOLUME 93.9 fL (81-99); PLATELET COUNT 159 x10e3/uL (140-360); RED BLOOD COUNT 3.96 x10e6/uL (4.3-5.7); RED CELL DISTRIBUTION WIDTH 12.8 % (11.7-14.4)
[2022-08-08 14:37] LABS: INR 0.95; PROTHROMBIN TIME 13.5 seconds (11.9-14.5)
[2022-08-08 14:38] LABS: PARTIAL THROMBOPLASTIN TIME 25.4 seconds (23.8-35.5)
[2022-08-08 14:39] LABS: ALBUMIN 3.6 g/dL (3.5-5.0); ALBUMIN/GLOBULIN RATIO 1.2 (0.8-2.0); ANION GAP 19.7 mmol/L (8-16); CALCIUM 9.8 mg/dL (8.4-10.2); CREATININE, SERUM 4.25 mg/dL (0.72-1.25)
[2022-08-08 14:43] LABS: POTASSIUM 6.7 mmol/L (3.5-5.1)
[2022-08-08] MEDS ORDERED: CALCIUM GLUCONATE 10% INJ 0.465 MEQ/ML VIAL IV STA (14:49)
[2022-08-08] MEDS ORDERED: DEXTROSE 50% SYRINGE 50 ML IV STA (14:49)
[2022-08-08] MEDS ORDERED: SODIUM BICARBONATE 8.4% INJ 50 ML SYR IV STA (14:49)
[2022-08-08] MEDS ORDERED: SOD POLYSTYRENE SULFONATE SUSP 15 GM/60 ML BTL PO STA (14:49)
[2022-08-08] MEDS ORDERED: ALBUTEROL SULF 0.083% NEB SOLN 3 ML NEB NEB STA (14:49)
[2022-08-08] MEDS ORDERED: CALCIUM GLUC 1 G/50 ML NACL 50 ML IV ONE (15:00)
[2022-08-08] MEDS ORDERED: INSULIN REGULAR, HUMAN 100 UNIT/1 ML IV ONE (15:00)
[2022-08-08] MEDS ORDERED: FUROSEMIDE INJ 10 MG/ML 10 ML VIAL IV ONE (15:00)
[2022-08-08] MEDS ORDERED: DEXTROSE 50% SYRINGE 50 ML IV ONE (15:00)
[2022-08-08] MEDS ORDERED: FILGRASTIM 300 MCG/ML VIAL SC STA (15:26)
[2022-08-08] MEDS ORDERED: ONDANSETRON HCL INJ 2MG/ML 2ML 2 MG/ML VIAL IV PRN (15:30)
[2022-08-08] MEDS ORDERED: FUROSEMIDE INJ 10 MG/ML 4 ML VIAL ONE (15:33)
[2022-08-08 16:06] LABS: LYMPHOCYTES % (MANUAL) 80 % (19-48); MONOCYTES % (MANUAL) 4 % (3.4-9.0); NEUTROPHILS % (MANUAL) 8 % (40-74); PLATELET ESTIMATE ADEQUATE; PLATELET MORPHOLOGY COMMENT NORMAL; RBC MORPHOLOGY COMMENT NORMAL
[2022-08-08] MEDS ORDERED: FILGRASTIM-AAFI 480 MCG/0.8 ML SYRINGE SQ ONE (16:30)
[2022-08-08 16:33] LABS: CLARITY,URINE CLEAR (CLEAR); COLOR,URINE YELLOW (YELLOW); KETONES,URINE NEGATIVE (NEGATIVE); LEUKOCYTE ESTERASE ,URINE NEGATIVE (NEGATIVE); NITRITE,URINE NEGATIVE (NEGATIVE); PROTEIN,URINE DIPSTICK NEGATIVE (NEGATIVE); URINE UROBILINOGEN 0.2 mg/dL (0.2 - 1)
[2022-08-08 16:43] LABS: BACTERIA,URINE RARE /HPF
[2022-08-08] MEDS ORDERED: SODIUM BICARBONATE 8.4% 75 ML in SODIUM CHLORIDE 0.45% 1,000 ML IV ONE (17:00)
[2022-08-08] MEDS ORDERED: METFORMIN HCL500 M1 PO (22:28)
[2022-08-08] MEDS ORDERED: ESOMEPRAZOLE MA40 MG PO (22:28)
[2022-08-08] MEDS ORDERED: SYNTHROID50 MCG PO (22:28)
[2022-08-08] MEDS ORDERED: AMIODARONE HCL100 MG PO (22:28)
[2022-08-08] MEDS ORDERED: LISINOPRIL10 MG PO (22:28)
[2022-08-08 22:29] VITALS: BP 98/61
[2022-08-08 22:52] VITALS: BP 98/61
[2022-08-08] MEDS ORDERED: AMIODARONE HCL 200 MG TAB PO ONE (23:30)
[2022-08-09] VITALS (7 sets, daily range): BP systolic 70–91; BP diastolic 49–62
[2022-08-09 06:18] LABS: BASOPHILS % 1.8 % (0.0-1.0); EOSINOPHILS % 1.8 % (0.0-6.0); HEMATOCRIT 30.4 % (38.2-49.6); HEMOGLOBIN 10.4 g/dL (14.0-18.0); LYMPHOCYTES # (AUTO) 0.5 (1.0-3.2); LYMPHOCYTES % 84.2 % (18.0-39.1); MEAN CORPUSCULAR HGB CONC 34.2 g/dL (31-35); MEAN CORPUSCULAR VOLUME 93.5 fL (81-99); MONOCYTES # (AUTO) 0.1 (0.2-0.8); MONOCYTES % 8.8 % (4.4-11.3); NEUTROPHILS % 3.4 % (38.7-80.0); PLATELET COUNT 140 x10e3/uL (140-360); RED BLOOD COUNT 3.25 x10e6/uL (4.3-5.7); RED CELL DISTRIBUTION WIDTH 12.9 % (11.7-14.4)
[2022-08-09 06:52] LABS: ALBUMIN/GLOBULIN RATIO 1.1 (0.8-2.0); ANION GAP 18.9 mmol/L (8-16); CREATININE, SERUM 4.37 mg/dL (0.72-1.25); POTASSIUM 4.9 mmol/L (3.5-5.1)
[2022-08-09 10:06] LABS: EOSINOPHILS % (MANUAL) 4 % (0-7); LYMPHOCYTES % (MANUAL) 94 % (19-48); MONOCYTES % (MANUAL) 2 % (3.4-9.0); PLATELET ESTIMATE SLIGHTLY DECREASED; PLATELET MORPHOLOGY COMMENT FEW LARGE; RBC MORPHOLOGY COMMENT NORMAL
[2022-08-09 11:01] LABS: ALBUMIN 2.8 g/dL (3.5-5.0); ALBUMIN/GLOBULIN RATIO 1.1 (0.8-2.0); ANION GAP 17.9 mmol/L (8-16); CALCIUM 8.8 mg/dL (8.4-10.2); CREATININE, SERUM 4.16 mg/dL (0.72-1.25); POTASSIUM 4.9 mmol/L (3.5-5.1)
[2022-08-09] MEDS: PANTOPRAZOLE SOD 40 MG TABEC PO SCH (11:56)
[2022-08-09] MEDS: SODIUM BICARBONATE 650 MG TAB PO SCH ×2 (11:56→17:00)
[2022-08-09] MEDS: FILGRASTIM-AAFI 480 MCG/0.8 ML SYRINGE SQ SCH (13:07)
[2022-08-09] MEDS: SODIUM CHLORIDE 0.9% 1000ML 1,000 ML IV SCH (22:14)
[2022-08-10] VITALS (7 sets, daily range): BP systolic 78–103; BP diastolic 54–72
[2022-08-10 07:04] LABS: ANION GAP 18.4 mmol/L (8-16); CALCIUM 8.9 mg/dL (8.4-10.2); CREATININE, SERUM 4.08 mg/dL (0.72-1.25); MAGNESIUM 1.6 MG/DL (1.3-2.1); PHOSPHORUS 3.6 MG/DL (2.3-4.7); POTASSIUM 4.4 mmol/L (3.5-5.1)
[2022-08-10] MEDS: PANTOPRAZOLE SOD 40 MG TABEC PO SCH (07:30)
[2022-08-10] MEDS ORDERED: AMIODARONE HCL 200 MG TAB PO SCH (09:00)
[2022-08-10] MEDS: FILGRASTIM-AAFI 480 MCG/0.8 ML SYRINGE SQ SCH (09:04)
[2022-08-10] MEDS: SODIUM BICARBONATE 650 MG TAB PO SCH ×2 (09:04→16:18)
[2022-08-10] MEDS: AMIODARONE HCL 200 MG TAB PO SCH (09:04)
[2022-08-10 11:09] LABS: BASOPHILS % 2.4 % (0.0-1.0); EOSINOPHILS % 1.2 % (0.0-6.0); HEMATOCRIT 31.9 % (38.2-49.6); HEMOGLOBIN 10.3 g/dL (14.0-18.0); LYMPHOCYTES # (AUTO) 0.7 (1.0-3.2); LYMPHOCYTES % 81.1 % (18.0-39.1); MEAN CORPUSCULAR HEMOGLOBIN 31.1 pg (28-32); MEAN CORPUSCULAR HGB CONC 32.3 g/dL (31-35); MEAN CORPUSCULAR VOLUME 96.4 fL (81-99); MONOCYTES # (AUTO) 0.1 (0.2-0.8); MONOCYTES % 15.3 % (4.4-11.3); PLATELET COUNT 143 x10e3/uL (140-360); RED BLOOD COUNT 3.31 x10e6/uL (4.3-5.7)
[2022-08-10] MEDS: SODIUM CHLORIDE 0.9% 1000ML 1,000 ML IV SCH (11:32)
[2022-08-10 14:46] LABS: LYMPHOCYTES % (MANUAL) 79 % (19-48); MONOCYTES % (MANUAL) 19 % (3.4-9.0); RBC MORPHOLOGY COMMENT NORMAL
[2022-08-10 14:47] LABS: PLATELET ESTIMATE ADEQUATE; PLATELET MORPHOLOGY COMMENT NORMAL
[2022-08-10] MEDS ORDERED: LOPERAMIDE HCL 2 MG CAP PO PRN (16:00)
[2022-08-10] MEDS: CHOLESTYRAMINE 4 GM PACKET PO SCH (16:18)
[2022-08-11] VITALS (8 sets, daily range): BP systolic 90–113; BP diastolic 48–69
[2022-08-11] MEDS: SODIUM CHLORIDE 0.9% 1000ML 1,000 ML IV SCH ×2 (04:00→13:15)
[2022-08-11 05:31] LABS: EOSINOPHILS % 2.1 % (0.0-6.0); HEMATOCRIT 29.9 % (38.2-49.6); LYMPHOCYTES # (AUTO) 0.6 (1.0-3.2); LYMPHOCYTES % 62.5 % (18.0-39.1); MEAN CORPUSCULAR HEMOGLOBIN 31.3 pg (28-32); MEAN CORPUSCULAR HGB CONC 33.4 g/dL (31-35); MEAN CORPUSCULAR VOLUME 93.7 fL (81-99); MONOCYTES # (AUTO) 0.3 (0.2-0.8); MONOCYTES % 31.3 % (4.4-11.3); PLATELET COUNT 171 x10e3/uL (140-360); RED BLOOD COUNT 3.19 x10e6/uL (4.3-5.7); RED CELL DISTRIBUTION WIDTH 12.8 % (11.7-14.4)
[2022-08-11] MEDS: LEVOTHYROXINE SODIUM 50 MCG TAB PO SCH (05:35)
[2022-08-11 05:44] LABS: ANION GAP 16.9 mmol/L (8-16); CALCIUM 8.8 mg/dL (8.4-10.2); CREATININE, SERUM 3.2 mg/dL (0.72-1.25); POTASSIUM 3.9 mmol/L (3.5-5.1)
[2022-08-11] MEDS: PANTOPRAZOLE SOD 40 MG TABEC PO SCH (08:53)
[2022-08-11] MEDS: SODIUM BICARBONATE 650 MG TAB PO SCH ×2 (08:53→16:48)
[2022-08-11] MEDS: CHOLESTYRAMINE 4 GM PACKET PO SCH (08:53)
[2022-08-11] MEDS: FILGRASTIM-AAFI 480 MCG/0.8 ML SYRINGE SQ SCH (08:55)
[2022-08-11] MEDS: AMIODARONE HCL 200 MG TAB PO SCH (08:55)
[2022-08-11 10:43] LABS: EOSINOPHILS % (MANUAL) 1 % (0-7); LYMPHOCYTES % (MANUAL) 75 % (19-48); MONOCYTES % (MANUAL) 17 % (3.4-9.0); PLATELET ESTIMATE ADEQUATE; PLATELET MORPHOLOGY COMMENT NORMAL; RBC MORPHOLOGY COMMENT NORMAL
[2022-08-11] MEDS: ACETAMINOPHEN 325 MG TAB PO PRN ×2 (16:47→22:24)
[2022-08-12] VITALS (8 sets, daily range): BP systolic 95–119; BP diastolic 49–76
[2022-08-12] MEDS: LEVOTHYROXINE SODIUM 50 MCG TAB PO SCH (05:47)
[2022-08-12] MEDS: TRAMADOL HCL 50 MG TAB PO PRN ×2 (05:47→16:00)
[2022-08-12] MEDS: SODIUM CHLORIDE 0.9% 1000ML 1,000 ML IV SCH ×2 (05:48→16:08)
[2022-08-12] MEDS: PANTOPRAZOLE SOD 40 MG TABEC PO SCH (08:23)
[2022-08-12] MEDS: CHOLESTYRAMINE 4 GM PACKET PO SCH (08:23)
[2022-08-12] MEDS: FILGRASTIM-AAFI 480 MCG/0.8 ML SYRINGE SQ SCH (08:23)
[2022-08-12] MEDS: AMIODARONE HCL 200 MG TAB PO SCH ×2 (08:23→22:22)
[2022-08-12] MEDS: SODIUM BICARBONATE 650 MG TAB PO SCH ×2 (08:23→17:35)
[2022-08-12 19:21] LABS: BASOPHILS % 0.3 % (0.0-1.0); EOSINOPHILS # (AUTO) 0.1 (0.0-0.4); EOSINOPHILS % 0.8 % (0.0-6.0); HEMATOCRIT 27.3 % (38.2-49.6); HEMOGLOBIN 9.1 g/dL (14.0-18.0); LYMPHOCYTES # (AUTO) 0.9 (1.0-3.2); LYMPHOCYTES % 12.8 % (18.0-39.1); MEAN CORPUSCULAR HEMOGLOBIN 31.7 pg (28-32); MEAN CORPUSCULAR HGB CONC 33.3 g/dL (31-35); MEAN CORPUSCULAR VOLUME 95.1 fL (81-99); MONOCYTES # (AUTO) 1.7 (0.2-0.8); MONOCYTES % 23.2 % (4.4-11.3); NEUTROPHILS # (AUTO) 3.8 (2.1-6.9); NEUTROPHILS % 50.9 % (38.7-80.0); PLATELET COUNT 140 x10e3/uL (140-360); RED BLOOD COUNT 2.87 x10e6/uL (4.3-5.7); RED CELL DISTRIBUTION WIDTH 13.2 % (11.7-14.4)
[2022-08-12] MEDS ORDERED: METOPROLOL SUCCINATE 25 MG TAB XL PO ONE (21:00)
[2022-08-12] MEDS ORDERED: AMIODARONE HCL 200 MG TAB PO SCH (21:35)
[2022-08-13] VITALS (8 sets, daily range): BP systolic 94–118; BP diastolic 59–69
[2022-08-13 04:54] LABS: EOSINOPHILS # (AUTO) 0.1 (0.0-0.4); EOSINOPHILS % 0.6 % (0.0-6.0); HEMATOCRIT 24.5 % (38.2-49.6); HEMOGLOBIN 8.6 g/dL (14.0-18.0); LYMPHOCYTES # (AUTO) 1.2 (1.0-3.2); LYMPHOCYTES % 9.2 % (18.0-39.1); MEAN CORPUSCULAR HEMOGLOBIN 31.7 pg (28-32); MEAN CORPUSCULAR HGB CONC 35.1 g/dL (31-35); MEAN CORPUSCULAR VOLUME 90.4 fL (81-99); MONOCYTES # (AUTO) 2.1 (0.2-0.8); MONOCYTES % 16.8 % (4.4-11.3); NEUTROPHILS # (AUTO) 7.2 (2.1-6.9); NEUTROPHILS % 56.8 % (38.7-80.0); PLATELET COUNT 142 x10e3/uL (140-360); RED BLOOD COUNT 2.71 x10e6/uL (4.3-5.7); RED CELL DISTRIBUTION WIDTH 13.4 % (11.7-14.4)
[2022-08-13 05:21] LABS: ANION GAP 14.1 mmol/L (8-16); CALCIUM 8.1 mg/dL (8.4-10.2); CREATININE, SERUM 2.15 mg/dL (0.72-1.25); POTASSIUM 3.1 mmol/L (3.5-5.1)
[2022-08-13] MEDS: LEVOTHYROXINE SODIUM 50 MCG TAB PO SCH (05:27)
[2022-08-13] MEDS: SODIUM CHLORIDE 0.9% 1000ML 1,000 ML IV SCH ×2 (05:27→18:35)
[2022-08-13] MEDS: SODIUM BICARBONATE 650 MG TAB PO SCH ×2 (08:05→17:38)
[2022-08-13] MEDS: CHOLESTYRAMINE 4 GM PACKET PO SCH (08:05)
[2022-08-13] MEDS: PANTOPRAZOLE SOD 40 MG TABEC PO SCH (08:05)
[2022-08-13] MEDS: AMIODARONE HCL 200 MG TAB PO SCH ×2 (08:06→20:39)
[2022-08-13] MEDS: FILGRASTIM-AAFI 480 MCG/0.8 ML SYRINGE SQ SCH (08:06)
[2022-08-13] MEDS ORDERED: AMIODARONE HCL 200 MG TAB PO ONE (09:00)
[2022-08-13] MEDS ORDERED: AMIODARONE HCL 200 MG TAB PO SCH (09:00)
[2022-08-13] MEDS: APIXABAN 5 MG TABLET PO SCH ×2 (09:27→20:37)
[2022-08-13 10:17] LABS: BAND NEUTROPHILS % (MANUAL) 7 %; LYMPHOCYTES % (MANUAL) 10 % (19-48); METAMYELOCYTES % (MANUAL) 7 % (0-0); MONOCYTES % (MANUAL) 5 % (3.4-9.0); MYELOCYTES % (MANUAL) 9 % (0-0); NEUTROPHILS % (MANUAL) 55 % (40-74); PROMYELOCYTES % (MANUAL) 6 % (0-0)
[2022-08-13 10:20] LABS: PLATELET ESTIMATE ADEQUATE; PLATELET MORPHOLOGY COMMENT NORMAL; RBC MORPHOLOGY COMMENT NORMAL; TOXIC GRANULATION MODERATE
[2022-08-13] MEDS ORDERED: POTASSIUM CHLORIDE 20MEQ/100ML 200 ML IV ONE (11:30)
[2022-08-13 17:34] LABS: CREATININE,URINE RANDOM 86.51 mg/dL (63-166)
[2022-08-14 00:57] VITALS: BP 134/70
[2022-08-14] MEDS: LEVOTHYROXINE SODIUM 50 MCG TAB PO SCH (05:36)
[2022-08-14 06:09] VITALS: BP 106/64
[2022-08-14] MEDS: SODIUM CHLORIDE 0.9% 1000ML 1,000 ML IV SCH (07:55)
[2022-08-14] MEDS: SODIUM BICARBONATE 650 MG TAB PO SCH (08:42)
[2022-08-14] MEDS: PANTOPRAZOLE SOD 40 MG TABEC PO SCH (08:42)
[2022-08-14] MEDS: AMIODARONE HCL 200 MG TAB PO SCH (08:42)
[2022-08-14] MEDS: APIXABAN 5 MG TABLET PO SCH (08:42)
[2022-08-14] MEDS: CHOLESTYRAMINE 4 GM PACKET PO SCH (08:42)
[2022-08-14 08:47] VITALS: BP 127/73
[2022-08-14 08:52] VITALS: BP 127/73
[2022-08-14] MEDS ORDERED: HEPARIN 500 UNITS/5ML MDV INJ ONE (11:15)
[2022-08-14 12:00] VITALS: BP 131/81
[2022-08-14] MEDS ORDERED: SODIUM BICARBONATE 650 MG TAB PO SCH (15:00)
== END 2022-08-14 12:44 | disposition home or self-care (01) | DRG 809 ==
LOC: ER 12:54 → ERHOLD 15:36 → MED/SURG2 20:42
PROVIDERS: ADMIT Family Medicine; ATTEND Family Medicine
DX: D70.1 Agranulocytosis secondary to cancer chemotherapy (principal); C18.9 Malignant neoplasm of colon, unspecified; N17.9 Acute kidney failure, unspecified; E87.1 Hypo-osmolality and hyponatremia; E87.20 Acidosis, unspecified; C78.7 Secondary malignant neoplasm of liver and intrahepatic bile duct; C78.02 Secondary malignant neoplasm of left lung; C78.01 Secondary malignant neoplasm of right lung; N18.4 Chronic kidney disease, stage 4 (severe); E44.0 Moderate protein-calorie malnutrition; Z68.1 Body mass index [BMI] 19.9 or less, adult; T45.1X5A Adverse effect of antineoplastic and immunosuppressive drugs, initial encounter; D70.9 Neutropenia, unspecified; B97.4 Respiratory syncytial virus as the cause of diseases classified elsewhere; E11.22 Type 2 diabetes mellitus with diabetic chronic kidney disease; I12.9 Hypertensive chronic kidney disease with stage 1 through stage 4 chronic kidney disease, or unspecified chronic kidney disease; I48.91 Unspecified atrial fibrillation; K44.9 Diaphragmatic hernia without obstruction or gangrene; E86.0 Dehydration; E87.5 Hyperkalemia; E78.5 Hyperlipidemia, unspecified; Z85.828 Personal history of other malignant neoplasm of skin; Z20.822 Contact with and (suspected) exposure to COVID-19; Z80.8 Family history of malignant neoplasm of other organs or systems; Z84.89 Family history of other specified conditions; Z90.49 Acquired absence of other specified parts of digestive tract; D63.8 Anemia in other chronic diseases classified elsewhere; R79.89 Other specified abnormal findings of blood chemistry; N28.1 Cyst of kidney, acquired
CPT/HCPCS: 36415; 71045; 71250; 74176; 76770; 80048; 80053; 81001; 81015; 82575; 82948; 83518; 83605; 83735; 84100; 84132; 85025; 85610; 85730; 87040; 87070; 87086; 87186; 87400; 87420; 93005; 96361; 99251; 99284; J0456; J0696; J1442; J1817; J1940; J2405; J3480; J7030; J7050; J7799